=== PATIENT | male | born 1975 | race Caucasian/White ===

== ENCOUNTER 2018-05-05 06:34 | Day surgery (SDC) | payer OTHER ==
[2018-05-02 13:26] VITALS: BMI 40.6
[2018-05-05] MEDS ORDERED: ceFAZolin SODIUM 1 GM VIAL ONE (07:20)
[2018-05-05] MEDS ORDERED: DEXAMETHASONE SOD PHOSPHATE 4 MG/1 ML VIAL ONE (07:20)
[2018-05-05] MEDS ORDERED: LIDOCAINE HCL/PF 2% SDV 5ML VIAL ONE (07:20)
[2018-05-05] MEDS ORDERED: BUPIVACAINE HCL/EPINEPHRINE/PF 30 ML VIAL IJ ONE (07:20)
[2018-05-05] MEDS ORDERED: ONDANSETRON 4 MG/2 ML VIAL ONE ×2 (07:20→08:46)
[2018-05-05] MEDS ORDERED: SODIUM CHLORIDE 0.9% P/F 10 ML VIAL IJ ONE (07:20)
[2018-05-05] MEDS ORDERED: PROPOFOL 20 ML ONE ×3 (07:21→08:08)
[2018-05-05] MEDS ORDERED: SUCCINYLCHOLINE CHLORIDE 200 MG/10 ML VIAL ONE (07:24)
[2018-05-05] MEDS ORDERED: MIDAZOLAM HCL 2 MG/2 ML SINGLE DOSE VIAL ONE (07:32)
--- NOTE | 2018-05-05 08:32 | DS ---
Physical Examination Vital Signs: Vital Signs Temperature 98 F 05/05/18 06:53 Pulse Rate 83 05/05/18 06:53 Respiratory Rate 18 05/05/18 06:53 Blood Pressure 135/88 05/05/18 06:53 O2 Sat by Pulse Oximetry (%) 99 05/05/18 06:53 Discharge Summary Reason For Visit: MEDIAL MENISCAL TEAR LEFT Condition: Good - Instructions Diet, Activity, Other Instructions: Post Operative Instructions: Knee Arthroscopy Dr Austin Cole 1. Pain following an arthroscopy is variable. Some patients will have more pain than others. You have been provided with a prescription for medication that contains a narcotic. You are not allowed to drive while on this medication. You should NOT take Tylenol (Acetaminophen) when taking the pain medication ( it will result in an overdose). Feel free to take medications such as Ibuprofen or Naprosyn in addition to the pain medicine if you do not have any problems with the NSAID class of medications. YOU SHOULD TAKE ASPIRIN 81 MG TWICE A DAY FOR 10 DAYS TO DECREASE THE RISK OF DEVELOPING A BLOOD CLOT. 2. You should are allowed to remove the bandages and shower in 24 hours unless directed otherwise. You are not allowed to bathe or go swimming until the sutures are removed. Put band-aids on the sutures after your shower and do not put any creams or lotions over the incisions. 3. You are allowed to put all your weight on the leg and bend your knee, 4. Apply ice to the knee for 15 min every hour or so. You may continue this for as many days as you like. 5. Please call the office to schedule a visit to have your sutures removed. 6. If for any reason you believe you may have an infection or are concerned, please feel free to call me. I can be reached through our office number 24 hours a day. 7. Please call our office with any questions; we will review the surgical findings during your post operative visit. Disposition: HOME - Home Medications Comprehensive Discharge Medication List: Ambulatory Orders metFORMIN HCL [Glucophage -] 500 mg PO BID 01/28/14 Atorvastatin Ca [Lipitor] 20 mg PO HS 05/02/18
--- NOTE | 2018-05-05 08:32 | OP ---
Operative Note - Note: Operative Date: 05/05/18 Pre-Operative Diagnosis: LEFT KNEE MMT, CARTILAGE DEFECT LFC Operation: LKA, PMM, LATERAL MICROFRACTURE Post-Operative Diagnosis: Same as Pre-op Surgeon: Austin oCle Anesthesiologist/DELIVERY MOTORCYCLE DRIVER: Mat Barragan Operative Report Dictated: Yes
[2018-05-05] MEDS ORDERED: oxyCODONE HCL 5 MG TABLET PO PRN (08:59)
[2018-05-05] MEDS ORDERED: ONDANSETRON 4 MG/2 ML VIAL IVPUSH PRN (08:59)
[2018-05-05] MEDS ORDERED: LACTATED RINGERS SOLUTION 1,000 ML IV SCH (09:00)
[2018-05-05 09:47] VITALS: TEMP 97.6
[2018-05-05 10:39] VITALS: BP 112/73; PULSE 73
[2018-05-05] MEDS ORDERED: SODIUM CHLORIDE 1,000 ML IV SCH (14:15)
--- NOTE | 2018-05-12 15:23 | PATH ---
Surgical Pathology Report Patient Name: OLIVA MEYER Med. Rec. #: [id number] /Age/Gender: 1975 (Age: 43) / M Account: [id number] Location: [facility] Taken: 05/05/2018 Received: 05/05/2018 Reported: 05/12/2018 Physicians: Austin Cole M.D. Specimen(s) Received SHAVINGS LEFT KNEE Clinical History Left knee meniscus tear Final Diagnosis KNEE, LEFT, ARTHROSCOPIC SHAVINGS: FIBROSYNOVIAL TISSUE AND CARTILAGE. Electronically Signed Shyanne Jackson M.D. Gross Description Received in formalin labeled "shavings left knee," is a 3.0 x 1.7 x 0.3 cm aggregate of giang-yellow soft tissue fragments. The formalin and filtered and the specimen is entirely submitted in one cassette. /05/05/2018 saudi05/05/2018
== END 2018-05-05 10:15 | disposition home or self-care (01) ==
LOC: FASU 06:34
PROVIDERS: ATTEND Orthopaedic Surgery
PROC: 0SBD4ZZ Excision of Left Knee Joint, Percutaneous Endoscopic Approach (ICD-10-PCS; 2018-05-05)
PROC: 0SBD4ZZ Excision of Left Knee Joint, Percutaneous Endoscopic Approach (ICD-10-PCS; principal; 2018-05-05 08:04)
DX: S83.242A Other tear of medial meniscus, current injury, left knee, initial encounter (principal); M24.10 Other articular cartilage disorders, unspecified site; X58.XXXA Exposure to other specified factors, initial encounter; Y93.89 Activity, other specified; Y92.89 Other specified places as the place of occurrence of the external cause
CPT/HCPCS: 82962; 88304-TC; 94760